=== PATIENT | female | born 1960 | race Caucasian/White ===

== ENCOUNTER → 2018-10-28 | Outpatient (CLI) | payer OTHER ==
[~2018-10-28] MED LIST: COZAAR100 MG PO; EFFEXOR XR75 MG PO; ERGOCALCIF50000 UNIT PO; ESTRADIOL 1 MG T1 M1 PO; INDERAL40 MG PO
--- NOTE | 2018-10-28 13:43 | EKG ---
[address] [address] ELECTROCARDIOGRAM REPORT Name: SULY SNOW [id number] Admission: 10/28/18 Attend Phys: Pierce Webster MD, Discharge: Date of : 56 Report #: [id number] THIS REPORT FOR: //name// [facility] Test Date: 2018-10-28 Test Time: 12:18:26 Pat Name: SULY SNOW Department: Room: Gender: F Helminthology Teacher: Leidy BREEN : 1960 Requested By: Pierce Webster Order Number: [id number] MD: Colin Carpio Measurements Intervals Jackson Rate: 65 P: 60 AK: 169 QRS: 44 QRSD: 90 T: 35 QT: 418 QTc: 435 Interpretive Statements Sinus rhythm No previous ECG available for comparison Electronically Signed On 10-28-2018 13:43:39 TIRE MANAGER by Colin Carpio [email or web address] <ELECTRONICALLY SIGNED> By: Colin Carpio MD 10/28/18 1343 1218 1218 Colin Carpio MD /JOE
== END ==
LOC: RAD 11:12
DX: Z01.818 Encounter for other preprocedural examination (principal)

== ENCOUNTER 2018-11-03 05:28 | Day surgery (SDC) | payer OTHER ==
[~2018-11-03] VITALS: Ht 152.4 cm; Wt 88.5 kg
[2018-11-03 08:27] LABS: HEMATOCRIT 39.4 % (37.0-47.0); HEMOGLOBIN 13.6 gm/dL (12.0-15.0)
[2018-11-03 08:30] VITALS: BP 143/59
[2018-11-03 17:33] VITALS: BP 143/51
[2018-11-03 20:00] VITALS: BP 121/55
--- NOTE | 2018-11-03 20:26 | NUR ---
PATIENT ARRIED TO THE UNIT AT 1700, POSPT, VSS. SHIFT ASSESMENT DONE. REPORTED PAIN, PRN PAIN MEDS GIVEN. ORDERS ACKNOWLEDGED AND IMPLEMENTED. WILL CONTINUE TO ASSESS AND ASSIST WITH ADLs NEEDED. REPORT GIVEN TO NIGHT NURSE.
[2018-11-04 04:30] VITALS: BP 125/49
--- NOTE | 2018-11-04 04:56 | NUR ---
Assumed care of pt at 1900. Pt is post-op lap sleeve gastrectomy, egd. Pt doing very well. Pain is controlled with scheduled pain meds. 5 lap sites with dermabond are clean, intact, and well approximated. Strict npo. AxO x4. SBA. Will continue to monitor and assist with needs.
[2018-11-04 06:13] LABS: HEMATOCRIT 34.8 % (37.0-47.0); HEMOGLOBIN 11.8 gm/dL (12.0-15.0); MCH 30.5 pg (26.0-34.0); MCHC 33.8 g/dL (28.0-37.0); MCV 90.2 fL (80.0-100.0); RBC 3.86 mil/uL (4.20-5.00); RDW 13.3 % (10.5-14.5)
[2018-11-04 06:26] LABS: CALCIUM 8.1 mg/dL (8.5-10.1); CREATININE 0.9 mg/dL (0.6-1.0)
[2018-11-04 07:49] VITALS: BP 112/49
--- NOTE | 2018-11-04 08:55 | NUR ---
ASSESMENT COMPLETED. VSS. A/O. DENIES PAIN THIS AM. C/O BLOATING. DENIES SOA. NO NV. ANTICIPATING DC HOME TODAY. WILL CONT. TO MONITOR.
--- NOTE | 2018-11-04 09:22 | NUR ---
Discharge teaching completed with patient and at bedside per Post Operative Sleeve Gastrectomy Instruction handout(see hard copy). Patient states understanding of all information given, denies further questions.
[2018-11-04 09:52] VITALS: BP 112/49
--- NOTE | 2018-11-04 10:31 | NUR ---
DC INSTRUCTIONS GIVEN TO PT AND . PT VERBALIZED UNDERSTANDING. PIV DISCONTINUED. PT DCD HOME WITH SELF CARE.
--- NOTE | 2018-11-07 16:06 | PATH ---
[facility] [address] [place] [address] PATHOLOGY RPT PROCEDURE Name: GWENDOLYNSIMIMICK ALDRIDGE Room #: DEP [facility] M.R.#: [id number] ������������������ Admission: 11/03/18 ������������������ Date of : 56 Discharge: 11/04/18 Report #: [id number] Path Case #: [id number] [facility] Accession Number: [id number] . 01 Material submitted: . GASTRIC SLEEVE . 01 Clinical history: . Morbid obesity . 02 Diagnosis: Gastric sleeve, laparoscopic sleeve gastrectomy: - No diagnostic abnormalities present, history of morbid obesity. . (IUV:mml; 11/07/2018) QL/11/07/2018 . 02 Electronically signed: . Qian Monet MD, Pathologist NPI- [id number] . 01 Gross description: . Received in formalin labeled "Simi Wheeler gastric sleeve," is a partial gastrectomy specimen measuring 19.8 x 3.7 x 3.5 cm in greatest dimensions. The serosal surface is smooth to shaggy and pale granger to starks-granger in appearance, displaying multiple foci of dark red possible hemorrhage. A linear staple line is present along one edge. The specimen is opened along the staple line to reveal a pale granger to starks-granger mucosa, displaying prominent to partially flattened rugae. Six starks-granger possible polyps are noted, ranging from 0.1 to 0.3 cm in maximum dimension. Dam Worker sections are submitted in cassettes A1 and A2, to include all identified possible polyps. (DAC; 11/04/2018) XDC/XDC . 02 Pathologist provided ICD-10: E66.01 . 02 CPT . 543066 Specimen Comment: A courtesy copy of this report has been sent to Specimen Comment: [phone]. Specimen Comment: Report sent to Performed at: [address] [id number] MD Simeon Asif MD Phone: [phone] [address] [address] PATHOLOGY RPT PROCEDURE Name: GWENDOLYNSIMI Room #: DEP [facility] Marylin#: [id number] ������������������ Admission: 11/03/18 ������������������ Date of : 56 Discharge: 11/04/18 Report #: [id number] Path Case #: [id number] Performed at: [address] [facility] [address] [id number] MD Qian Monet MD Phone: [phone]
--- NOTE | 2018-11-15 15:20 | O ---
[facility] [place] [address] OPERATIVE REPORT Name: SULY SNOW Room #: DEP [facility].#: [id number] Admission: 11/03/18 ������������������ Attend Phys: Pierce Webster MD, Discharge: 11/04/18 ������������������ Date of : 56 Report #: [id number] THIS REPORT FOR: //name// CC: Joshua Webster DATE OF SERVICE: 11/03/2018 PREOPERATIVE DIAGNOSES: 1. Morbid obesity with a body mass index of greater than 40. 2. Hypertension. 3. Obstructive sleep apnea. 4. Lumbago. 5. Chronic bilateral lower extremity joint pain. 6. Chronic fatigue. POSTOPERATIVE DIAGNOSES: 1. Morbid obesity with a body mass index of greater than 40. 2. Hypertension. 3. Obstructive sleep apnea. 4. Lumbago. 5. Chronic bilateral lower extremity joint pain. 6. Chronic fatigue. PROCEDURES PERFORMED: 1. Laparoscopic sleeve gastrectomy. 2. A thorough esophagogastroduodenoscopy (EGD). SURGEON: Pierce Webster MD ORACLE ETL DEVELOPER: Demario Saleem MD ANESTHESIA: General endotracheal anesthesia. ESTIMATED BLOOD LOSS: Minimal (less than 5 mL). COMPLICATIONS: None appreciated. SPECIMENS: Gastric sleeve resection specimen to pathology. INDICATIONS: The patient is a 58-year-old morbidly obese female who has been seen for her desire for weight loss surgery as she has had numerous weight loss attempts, all to no avail. The patient has undergone a thorough multimodal workup including evaluation by her primary care physician, a psychologist and a cloth examiner who have all cleared her for bariatric surgery as well as indicating it is necessary for long-term weight loss and assistance [facility] [address] [place] [address] OPERATIVE REPORT Name: SULY SNOW Room #: DEP [facility] M.R.#: [id number] Admission: 11/03/18 ������������������ Attend Phys: Pierce Webster MD, Discharge: 11/04/18 ������������������ Date of : 56 Report #: [id number] with resolution of her comorbid conditions. The patient has undergone physician-directed diet and exercise attempts to no avail and as such, indication was for the above-mentioned procedures today. DESCRIPTION OF PROCEDURE: After explaining the risks, benefits, alternatives of the procedure with the patient in detail in the preoperative holding area and obtaining written consent, the patient was brought to the operating room and placed supine on the operating room table. After conducting a thorough timeout procedure, verifying correct patient and procedure, the patient was given general endotracheal anesthesia. Once adequate anesthesia was obtained, her SCDs were hooked up to pneumatic compression device. She was given a preoperative dose of antibiotics in line with the SCIP protocol. The patient's abdomen was now prepped and draped in standard surgical sterile fashion after positioning her in the low lithotomy position with her legs in the Yellofin stirrups. I began the procedure by performing a thorough EGD. The NextDocsn upper endoscope was used to intubate the oropharynx, was traversed down the esophagus, into the second portion of duodenum. Slow and careful withdrawal of the scope showed no evidence of duodenitis, gastritis, esophagitis, mass, lesions or ulcerations. Retroflexion view of the scope within the gastric lumen showed no evidence of a hiatal hernia. Scope was straightened out with its tip at the level of pylorus where it was fixed into position and the stomach was fully desufflated. After sterilely scrubbing and entering the operative field, 5 mL of 0.5% Marcaine with epinephrine were used to anesthetize the skin in the right mid abdomen, 5 cm cephalad to the umbilicus and 5 cm to the patient's right. A #15 bladed scalpel was used to create a 1.5 cm transverse skin incision at this location. A 15 mm Visiport was placed over 0 degree 5 mm laparoscope and was introduced through this incision site. Once intra-abdominal placement was verified visually, the obturator for the trocar and laparoscope were both removed and the abdomen was insufflated to 15 mmHg using carbon dioxide gas. The laparoscope was changed to a 5-mm 30-degree laparoscope, was reintroduced through this trocar. The entire abdomen was evaluated to ensure no injury upon entry. I now placed three additional 5 mm trocars in the left mid abdomen. The first was placed 2 cm cephalad to the umbilicus and 2 cm to the patient's left, and an additional one was placed 5 cm lateral to that, the final one was placed in the extreme left lateral flank. All three additional 5 mm ports were placed under direct vision after anesthetizing the skin at each location with 5 mL of 0.5% Marcaine with epinephrine and I had created small skin nicks using #15 bladed scalpel. Laparoscope was removed, changed to a 5 mm port just cephalad to the umbilicus and the patient was placed in steep reverse Trendelenburg position. I now anesthetized the skin in the subxiphoid location using 5 mL of 0.5% Marcaine with epinephrine and I created a small skin dinora using 15 bladed scalpel. The Bogdan liver retractor was placed through this defect, was maneuvered up under the left lobe of the liver and was held up against posterior aspect of the anterior abdominal wall and fixed into position using the iron investigator internal affairs device to stabilize it. We now had complete access to the stomach and hiatal regions and again saw no evidence of a hiatal hernia. We now [facility] [address] [place] [address] OPERATIVE REPORT Name: SULY SNOW Room #: DEP [facility] M.R.#: [id number] Admission: 11/03/18 ������������������ Attend Phys: Pierce Webster MD, Discharge: 11/04/18 ������������������ Date of : 56 Report #: [id number] started our dissection after identifying our landmarks. The vein of [place]ir[place] was identified overlying the pylorus. I measured 4 cm proximal to this location and began taking down the short gastric arteries from this location all the way up the greater curvature of the stomach using Harmonic scalpel for hemostasis. Once I arrived upon the left yara, I dissected anteriorly at the left yara and reflected the stomach anteriorly as well and took down all posterior gastric attachments. We now started the stapling portion of the procedure, ensuring that the EGD scope was running along the lesser curvature of the stomach. The [place] 60 mm stapler with a black load utilizing Rasmussen's Latosha-Strip buttressing material placed over it, was entered into the abdomen through the 15 mm trocar. This first firing started at the location 4 cm proximal to pylorus and fired right along, but not extremely tight to the scope, so as not to cause stricturing, especially at the incisura. An additional firing of another black load, again utilizing Rasmussen's Latosha-Strip buttressing material was carried out following the scope as a 34-Tanzanian bougie. Five additional firings, all green loads utilizing Rasmussen's Latosha-Strip buttressing material were carried out following the scope as a bougie all the way up to the left yara until the stomach was completely transected. This left an excellently oriented sleeve of gastric remnant with no twisting and complete hemostasis. The resection specimen was placed in the right upper quadrant for future retrieval and the staple line was evaluated. I now utilized 10 mL of Tisseel on the hiogispraPolytouch Medical device to coat the entirety of the staple line with fibrin glue. I then grasped the resection specimen and removed out of the abdomen through the 15 mm fascial incision under direct vision. I then closed the 15 mm fascial incision using 0 PDS suture on a Andrzej-Baldev suture passer device and tied this down under direct vision. The EGD scope was now reactivated and slowly withdrawn, evaluating the staple line from the inside to ensure intraluminal hemostasis. We saw no evidence of bleeding whatsoever. Gentle insufflation of the sleeved stomach allowed us to evaluate the staple line with no bubbling being seen in the Tisseel glue, thereby signifying a negative leak test. The EGD scope was removed via the oropharynx, passed off the field. The Bogdan liver retractor was removed under direct vision. Liver was healthy and uninjured. The abdomen was now fully desufflated. All remaining trocars were removed under direct vision. A 4-0 Monocryl was used in a standard subcuticular fashion for all skin incisions. Dermabond glue was applied to all skin wounds. The corner of the resection specimen had been removed, was trimmed away and normal saline was passively instilled in the resection specimen, yielding 1100 mL in the resection specimen itself. At the end of the procedure, all instrument, needle and sponge counts were correct. The patient tolerated the procedure without incident, was awakened in the operating room, transitioned to the recovery room in stable condition with no apparent complications. ��������������������������������������������� <ELECTRONICALLY SIGNED> ���������������������������������������� By: Pierce Webster MD, FACS ��������������������������������������������� 11/15/18 1520 0748 0848 Pierce Webster MD, FACS /nt
== END 2018-11-04 10:22 | disposition home or self-care (01) ==
LOC: OR → TBA 05:28 → OR 10:01 → 4E 16:55 → ENTRNSPT 11-04 10:13 → OR 11-04 10:22
PROVIDERS: Surgery
DX: E66.01 Morbid (severe) obesity due to excess calories (principal); G47.33 Obstructive sleep apnea (adult) (pediatric); I10 Essential (primary) hypertension; G89.29 Other chronic pain; M54.5 Low back pain; R25.1 Tremor, unspecified; Z90.711 Acquired absence of uterus with remaining cervical stump; Z98.890 Other specified postprocedural states; Z79.899 Other long term (current) drug therapy; Z68.41 Body mass index [BMI] 40.0-44.9, adult
CPT/HCPCS: 10783; 50010; 50101; 50222; 50249; 50386; 50555; 50739; 50740; 50962; 51437; 52182; 52265; 53307; 53311; 54022; 54118; 56462; 56525; 56526; 57092; 70005